=== PATIENT | female | born 1970 | race Caucasian/White ===

== ENCOUNTER 2016-08-27 14:39 | Emergency (ER) | payer MEDICARE, OTHER ==
[2016-08-27 16:05] LABS: BASOPHIL 0.2 % (0-2); EOSINOPHIL 1.4 % (0-5); HCT 34.8 % (37.0-47.0); HGB 11.1 g/dl (12.5-16.0); LYMPHOCYTE 16.5 % (15-48); MCH 24.4 pg (25.0-31.0); MCHC 31.9 g/dL (32.0-36.0); MCV 76.5 fL (78.0-100.0); MONOCYTE 3.7 % (0-12); MPV 8.4 fL (6.0-9.5); NEUTROPHIL 78.2 % (41-80); PLT 434 K/uL (150-400); RBC 4.55 M/uL (4.20-5.40); RDW 14.5 % (11.5-14.0); WBC 8.7 K/uL (4.0-10.5)
[2016-08-27 16:21] LABS: INR 1.23 (0.9-1.2); PROTHROMBIN TIME 15.1 SECONDS (11.7-14.0); PTT 36.6 SECONDS (23.2-31.4)
[2016-08-27 16:29] LABS: LACTIC ACID 3.5 mmol/L (0.5-2.2)
[2016-08-27 16:31] LABS: CREATININE 0.7 mg/dL (0.5-1.0); POTASSIUM 3.6 mmol/L (3.5-5.1)
== END 2016-08-27 17:21 | disposition home or self-care (01) ==
LOC: FER 14:39
PROVIDERS: Emergency Medicine
DX: S81.001A Unspecified open wound, right knee, initial encounter (principal); R55 Syncope and collapse; R50.9 Fever, unspecified; M86.8X6 Other osteomyelitis, lower leg; G89.29 Other chronic pain; M54.2 Cervicalgia; M54.9 Dorsalgia, unspecified; Z86.14 Personal history of Methicillin resistant Staphylococcus aureus infection; Z85.41 Personal history of malignant neoplasm of cervix uteri; Z86.718 Personal history of other venous thrombosis and embolism; Z88.0 Allergy status to penicillin; Z88.1 Allergy status to other antibiotic agents; Z98.890 Other specified postprocedural states
CPT/HCPCS: 36415; 73564; 80048; 83605; 85025; 85610; 85730; 87040; 93005; J1170

== ENCOUNTER 2020-09-25 13:57 | Emergency (ER) | payer OTHER ==
[~2020-09-25 13:57] MED LIST: BENADRYL25 MG IV; DAPTOMYCIN500 MG IV; DIAZEPAM 2MG TAB2 MG PO; DIAZEPAM 5MG TAB5 MG PO; DILAUDID; DIPHENHYDR IV; DIPHENHYDR50 MG/1 M1 IVP; ELIQUIS2.5 MG PO; HEPARIN 31 UNIT/1 M IV; LOVENOX40 MG/0.1 SC; MAXIPIME2 GM IV; MORPHINE 110 MG/0.5 IV; PERCOCET 5-3251 EACH PO; PERCOCET 7.5-31 EACH PO; PROTONIX 40MG T40 MG PO; RIFAMPIN IV; VANCO 1 GR1 GM/250 M IV; VANCOMYCIN1000 MG/VI IV; VIBRAMYCIN100 MG PO; XARELTO20 MG PO; ZOFRAN4 MG PO; ZOFRAN8 MG PO; [UNRECOGNIZED DRUG - OTHER] IV
[2020-09-25 15:23] LABS: BASOPHIL 0.3 % (0-2); EOSINOPHIL 6.5 % (0-5); HGB 7.5 g/dl (12.5-16.0); LYMPHOCYTE 25.9 % (15-48); MCH 20.8 pg (25.0-31.0); MCHC 28.8 g/dL (32.0-36.0); MONOCYTE 6.6 % (0-12); MPV 9.1 fL (6.0-9.5); NEUTROPHIL 59.9 % (41-80); NRBC 0; PLT 241 K/uL (150-400); RBC 3.61 M/uL (4.20-5.40); RDW 15.9 % (11.5-14.0)
[2020-09-25 15:42] LABS: ALBUMIN 3.3 g/dL (3.4-5.0); BILIRUBIN - TOTAL 0.2 mg/dL (0.2-1.0); BUN/CREAT RATIO (CALC) 21.5 RATIO; CREATININE 0.65 mg/dL (0.51-0.95); GLOBULIN (CALCULATION) 4.7 g/dL
== END 2020-09-25 17:01 | disposition home or self-care (01) ==
LOC: FER 13:57
PROVIDERS: Emergency Medicine
DX: D64.9 Anemia, unspecified (principal); Z86.14 Personal history of Methicillin resistant Staphylococcus aureus infection; Z88.1 Allergy status to other antibiotic agents
CPT/HCPCS: 36415; 80053; 85025; 86850; 86900; 86901; 86922; 99284

== ENCOUNTER 2021-08-03 05:00 | Emergency (ER) | payer OTHER ==
[2021-08-03 06:56] LABS: BASOPHIL 0.4 % (0-2); EOSINOPHIL 1.8 % (0-5); HCT 31.6 % (37.0-47.0); HGB 8.9 g/dl (12.5-16.0); LYMPHOCYTE 14.1 % (15-48); MCHC 28.2 g/dL (32.0-36.0); MCV 67.5 fL (78.0-100.0); MPV 8.8 fL (6.0-9.5); NEUTROPHIL 78.3 % (41-80); NRBC 0; PLT 343 K/uL (150-400); RBC 4.68 M/uL (4.20-5.40); RDW 18.8 % (11.5-14.0); WBC 10.5 K/uL (4.0-10.5)
[2021-08-03 07:39] LABS: ALBUMIN 2.8 g/dL (3.4-5.0); BILIRUBIN - TOTAL 0.2 mg/dL (0.2-1.0); BUN/CREAT RATIO (CALC) 18.2 RATIO; CREATININE 0.55 mg/dL (0.51-0.95); GLOBULIN (CALCULATION) 5.8 g/dL; POTASSIUM 3.7 mmol/L (3.5-5.1); TOTAL PROTEIN 8.6 g/dL (6.4-8.2)
[2021-08-03 07:51] LABS: LACTIC ACID 2.1 mmol/L (0.4-1.9)
== END 2021-08-03 15:30 | disposition home or self-care (01) ==
LOC: FER 05:00
PROVIDERS: Internal Medicine
DX: T81.49XA Infection following a procedure, other surgical site, initial encounter (principal); Z88.1 Allergy status to other antibiotic agents; Z28.310 Unvaccinated for COVID-19
CPT/HCPCS: 36415; 73070; 73552; 73590; 80053; 83605; 84145; 85025; 87040; J1170; J1200; J1642; J2185; J2405; J2550; J3370; J7030; J7050